=== PATIENT | female | born 1995 | race American Indian/Alaskan Native ===

== ENCOUNTER 2018-09-22 01:53 | Emergency (ER) | payer BC ==
[2018-09-22] MEDS ORDERED: ZOFRAN ODT PO ONE (02:22)
[2018-09-22] MEDS ORDERED: ZOFRAN ODT ONE (02:24)
[2018-09-22 03:18] LABS: Basophils # (Auto) 0.1 K/mm3 (0.0-0.1); Basophils % (Auto) 0.8 % (0.0-1.8); Eosinophils % (Auto) 0.3 % (0.0-4.3); Hemoglobin 14.9 gm/dl (10.1-14.3); Lymphocytes # (Auto) 2.7 K/mm3 (1.2-5.4); Lymphocytes % (Auto) 26.9 % (13.4-35.0); Mean Corpuscular HGB Conc 35 % (30-34); Mean Corpuscular Volume 93 fl (79-97); Monocytes # (Auto) 0.6 K/mm3 (0.0-0.8); Monocytes % (Auto) 5.6 % (0.0-7.3); Platelet Count 287 K/mm3 (140-440); Red Blood Count 4.61 M/mm3 (3.65-5.03); Red Cell Distribution Width 12.7 % (13.2-15.2)
[2018-09-22 03:36] LABS: Alanine Aminotransferase 22 units/L (7-56); Albumin 4.4 g/dL (3.9-5); BUN/Creatinine Ratio 12; Blood Urea Nitrogen 12 mg/dL (7-17); Hemolysis Index 5
[2018-09-22 03:56] LABS: Bilirubin,Urine NEG (Negative); Blood,Urine MOD (Negative); Color,Urine Yellow (Yellow); Protein,Urine <15 mg/dL mg/dL (Negative); Urobilinogen,Urine < 2.0 mg/dL (<2.0)
[2018-09-22] MEDS ORDERED: REGLAN PO ONE (05:41)
--- NOTE | 2018-09-22 05:47 | Emergency Department Report ---
Vomiting/Diarrhea - HPI Chief Complaint: Nausea/Vomiting/Diarrhea Stated Complaint: VOMITING/NAUSEA Time Seen by Provider: 09/22/18 05:40 Duration: 1 Day Severity: moderate Nausea/Vomiting Severity: Moderate Diarrhea Severity: None Symptoms: Yes Recent Unusual Foods (butter that has set out of the refrigerator..) Other History: 23-year-old female returns to the emergency room for nausea and vomiting that started yesterday morning after eating better they had set out. Patient reports she is not able to hold any food down or liquids. She denies any past medical history currently takes no medications on a daily basis has no known drug allergies. She only has abdominal pain after she vomits. ED Review of Systems ROS: Stated complaint: VOMITING/NAUSEA Other details as noted in HPI Comment: All other systems reviewed and negative Gastrointestinal: nausea, vomiting ED Past Medical Hx - Past Medical History Previous Medical History?: No - Surgical History Past Surgical History?: No - Social History Smoking Status: Never Smoker Substance Use Type: None - Medications Home Medications: Home Medications Medication Instructions Recorded Confirmed Last Taken Type Ondansetron [Zofran Odt] 4 mg PO Q8HR #9 tab.rapdis 09/22/18 Unknown Rx Vomiting Diarrhea Exam - Exam General: Vital signs noted. No distress. Alert and acting appropriately. HEENT: Yes Moist Mucous Membranes, No Pharyngeal Erythema, No Pharyngeal Exudates, No Rhinorrhea, No Conjuctival Injection, No Frontal Tenderness, No Maxillary Tenderness Neck: No Adenopathy, No Rigidity Lungs: Yes Clear Lung Sounds, Yes Good Air Exchange, No Wheezes, No Stridor, No Cough, No Nasal Flaring, No Retractions, No Use of Accessory Muscles Heart exam: Regular: Yes, Murmur: No, Tachycardia: No Abdomen: Tenderness: No, Peritoneal Signs: No, Distention: No, Hyperactive Bowel sounds: No Skin exam: Rash: No, Edema: No, Normal turgor: Yes Neurologic: Alert and oriented, no deficits. Musculoskeletal: Unremarkable. ED Course Vital Signs 09/22/18 02:07 Temperature 98.5 F Pulse Rate 78 Respiratory 16 Rate Blood Pressure 119/82 O2 Sat by Pulse 100 Oximetry - Reevaluation(s) Reevaluation #1: 09/22/18 07:06 Patient reports she feels much better after having fluids in and 10 nausea medication. ED Medical Decision Making - Lab Data Result diagrams: 09/22/18 02:53 09/22/18 02:53 Laboratory Tests 09/22/18 09/22/18 09/22/18 02:53 02:53 02:53 WBC 10.0 RBC 4.61 Hgb 14.9 H Hct 43.0 H MCV 93 MCH 32 MCHC 35 H RDW 12.7 L Plt Count 287 Lymph % (Auto) 26.9 Hall % (Auto) 5.6 Eos % (Auto) 0.3 Baso % (Auto) 0.8 Lymph # 2.7 Hall # 0.6 Eos # 0.0 Baso # 0.1 Seg Neutrophils % 66.4 Seg Neutrophils # 6.6 Sodium 142 Potassium 4.0 Chloride 103.9 Carbon Dioxide 23 Anion Gap 19 BUN 12 Creatinine 1.0 Estimated GFR > 60 BUN/Creatinine Ratio 12 Glucose 129 H Calcium 10.0 Total Bilirubin 0.60 AST 19 ALT 22 Alkaline Phosphatase 59 Total Protein 8.2 Albumin 4.4 Albumin/Globulin Ratio 1.2 Lipase 39 HCG, Qual Negative Urine Color Urine Turbidity Urine pH Ur Specific [place] Urine Protein Urine Glucose (UA) Urine Ketones Urine Blood Urine Nitrite Urine Bilirubin Urine Urobilinogen Ur Leukocyte Esterase Urine WBC (Auto) Urine RBC (Auto) U Epithel Cells (Auto) 09/22/18 Unknown WBC RBC Hgb Hct MCV MCH MCHC RDW Plt Count Lymph % (Auto) Hall % (Auto) Eos % (Auto) Baso % (Auto) Lymph # Hall # Eos # Baso # Seg Neutrophils % Seg Neutrophils # Sodium Potassium Chloride Carbon Dioxide Anion Gap BUN Creatinine Estimated GFR BUN/Creatinine Ratio Glucose Calcium Total Bilirubin AST ALT Alkaline Phosphatase Total Protein Albumin Albumin/Globulin Ratio Lipase HCG, Qual Urine Color Yellow Urine Turbidity Clear Urine pH 7.0 Ur Specific [place] 1.012 Urine Protein <15 mg/dl Urine Glucose (UA) Neg Urine Ketones Neg Urine Blood Mod Urine Nitrite Neg Urine Bilirubin Neg Urine Urobilinogen < 2.0 Ur Leukocyte Esterase Neg Urine WBC (Auto) 2.0 Urine RBC (Auto) 1.0 U Epithel Cells (Auto) 2.0 - Medical Decision Making Patient has been evaluated by this provider and [facility]. Patient was given Zofran in triage and Reglan 10 mg by mouth and ACC. Critical care attestation.: If time is entered above; I have spent that time in minutes in the direct care of this critically ill patient, excluding procedure time. ED Disposition Clinical Impression: Nausea and vomiting Qualifiers: Vomiting type: unspecified Vomiting Intractability: intractable Qualified Code(s): R11.2 - Nausea with vomiting, unspecified Disposition: DC-01 TO HOME OR SELFCARE Is pt being admited?: No Does the pt Need Aspirin: No Condition: Stable Instructions: Acute Nausea and Vomiting (ED) Additional Instructions: Please take anti nausea medication when he has needed. Take it 30 minutes prior to drinking. Increase her fluid intake Effexor diet as tolerated. Prescriptions: Ondansetron [Zofran Odt] 4 mg PO Q8HR #9 tab.rapdis Referrals: SYDNEY WILLIAM MD [Primary Care Provider] - 3-5 Days Forms: Work/School Release Form(ED), Accompanied Note
[2018-09-22] MEDS ORDERED: NACL 0.9% 1000 ML 1,000 ML IV ONE (05:51)
[2018-09-22] MEDS ORDERED: REGLAN IV ONE (05:53)
[2018-09-22] MEDS ORDERED: REGLAN ONE (05:56)
[2018-09-22 07:33] VITALS: BP 118/75
== END 2018-09-22 07:32 | disposition home or self-care (01) ==
LOC: ED 01:53
DX: R11.2 Nausea with vomiting, unspecified (principal)
CPT/HCPCS: 36415; 80053; 81001; 83690; 84703; 85025; 96361; 96374; 99283; J2765; J7030; Q0162